=== PATIENT | female | born 1995 | race Caucasian/White ===

== ENCOUNTER 2020-05-21 07:42 | Emergency (ER) | payer MEDICAID ==
[~2020-05-21] VITALS: Ht 162.6 cm; Wt 68.0 kg
[2020-05-21] MEDS ORDERED: ONDANSETRON HCL 4MG/2ML INJ IV STA (07:55)
[2020-05-21 08:00] VITALS: BP 124/91
[2020-05-21] MEDS ORDERED: LORAZEPAM 2MG/ML CPJ IV ONE (08:00)
[2020-05-21 08:47] LABS: BASOPHILS % 2.3 % (0.0-2.0); CLARITY URINE CLEAR (CLEAR); COLOR URINE YELLOW (YELLOW); EOSINOPHILS % 0.9 % (0.0-5.0); HEMATOCRIT. 37.6 % (36.0-48.0); KETONES URINE NEGATIVE (NEGATIVE); LEUKOCYTE ESTERASE URINE NEGATIVE (NEGATIVE); MEAN CORPUSCULAR HEMOGLOBIN 25.3 pg (28.0-32.0); MEAN CORPUSCULAR VOLUME 79.3 fL (81.0-99.0); MEAN PLATELET VOLUME 7.5 fl (7.4-10.4); MONOCYTES % 5.8 % (2.0-8.0); NITRITE URINE NEGATIVE (NEGATIVE); OCCULT BLOOD URINE TRACE (NEGATIVE); PLATELET 190 x1000/uL (130-400); PROTEIN URINE NEGATIVE (NEGATIVE); RED BLOOD CELL COUNT 4.75 mill/uL (4.2-5.4); RED CELL DISTRIBUTION WIDTH 27.5 % (11.6-14.6); SPECIFIC GRAVITY URINE 1.003 (1.005-1.030)
[2020-05-21 08:53] LABS: CHLORIDE 102 mEq/L (98-107)
[2020-05-21 09:08] LABS: ETHANOL BLOOD 319 mg/dL
[2020-05-21 09:30] LABS: PLATELET ESTIMATE NORMAL
== END 2020-05-21 10:44 | disposition home or self-care (01) ==
LOC: ER 07:42
DX: F10.180 Alcohol abuse with alcohol-induced anxiety disorder (principal); F10.139 Alcohol abuse with withdrawal, unspecified; Y90.8 Blood alcohol level of 240 mg/100 ml or more; R03.0 Elevated blood-pressure reading, without diagnosis of hypertension
CPT/HCPCS: 36415; 80053; 80320; 81003; 81025; 85025; 93005; 96374; 99284; J2060; Z7610; G0480

== ENCOUNTER 2020-05-21 12:05 | Emergency (ER) | payer MEDICAID ==
[~2020-05-21] VITALS: Ht 157.5 cm; Wt 70.0 kg
[2020-05-21 12:26] VITALS: BP 121/81
== END 2020-05-21 14:30 | disposition left against medical advice (07) ==
LOC: ER 13:58
DX: Z53.21 Procedure and treatment not carried out due to patient leaving prior to being seen by health care provider (principal)